=== PATIENT | female | born 1990 | race Two or more races ===

== ENCOUNTER 2016-06-20 19:29 | Emergency (ER) | payer OTHER ==
[2016-06-20 19:40] VITALS: O2SAT 96
[2016-06-20 19:59] LABS: % IMMATURE GRANULYOCYTES 0.2 % (0.0-1.1); ABSOLUTE IMMATURE GRANULOCYTES 0.01 10^3/uL (0.00-0.10); ADD DIFF? NO; ADD MORPH? NO; ADD SCAN? NO; ATYPICAL LYMPHOCYTE FLAG 10 (0-99); FRAGMENT RBC FLAG 0 (0-99); HEMATOCRIT 44.6 % (38.0-47.0); HEMOGLOBIN 15.8 g/dL (12.6-16.3); LEFT SHIFT FLG 0 (0-99); LIPEMIA HEMOLYSIS FLAG 90 (0-99); MEAN CELL HEMOGLOBIN 30.9 pg (27.9-34.1); MEAN CELL HEMOGLOBIN CONCENTR. 35.4 g/dL (32.4-36.7); MEAN CELL VOLUME 87.3 fL (81.5-99.8); MEAN PLATELET VOLUME 10.4 fL (8.7-11.7); PLATELET CLUMPS FLAG 0 (0-99); PLATELET COUNT 277 10^3/uL (150-400); RED BLOOD CELL COUNT 5.11 10^6/uL (4.18-5.33); RED CELL DISTRIBUTION WIDTH 13.2 % (11.5-15.2)
[2016-06-20 20:03] LABS: COLOR AMBER; LEUKOCYTE ESTERASE,URINE NEGATIVE (NEGATIVE); NITRITE,URINE NEGATIVE (NEGATIVE)
[2016-06-20 20:12] LABS: ANION GAP 11 mEq/L (8-16); CALCIUM 9.4 mg/dL (8.5-10.4); CARBON DIOXIDE 27 mEq/l (22-31); CHLORIDE 103 mEq/L (97-110); CREATININE 0.7 mg/dL (0.6-1.0); GLOMERULAR FILTRATION RATE > 60; GLUCOSE 92 mg/dL (70-100); POTASSIUM 3.9 mEq/L (3.5-5.2); SODIUM 141 mEq/L (134-144)
--- NOTE | 2016-06-20 21:31 | EDPHY ---
H & P Stated Complaint: BILT LOW ABD PAIN, RECENT UTI W/TREATMENT X 3 ABX Time Seen by Provider: 06/20/16 19:35 HPI/ROS: CHIEF COMPLAINT: abdominal pain HISTORY OF PRESENT ILLNESS: 25-year-old female presents emergency department complaining of abdominal pain times 10 days. She was seen at urgent care, diagnosed with a urinary tract infection and placed on Macrobid, the patient's symptoms became worse in she developed back pain, she called her primary care doctor and her antibiotic was changed to cefdinir 300 mg twice daily. Her symptoms continue to worsen so her PCP recommended she see design engineering intern. 2 days later she was seen by the laborer airport maintenance and had a pelvic exam, they were concern for pelvic inflammatory disease, she received a shot of ceftriaxone and was placed on metronidazole. She was seen 2 days later for repeat pelvic exam with symptoms that are improving. Patient reports her abdominal discomfort has improved though she woke up with nausea yesterday that has continued today. Patient started taking metronidazole 3 days ago. Patient reports she has had bilateral flank pain for the entire 10 days, this is improving as well. No vomiting, no diarrhea. Patient is sexually active with the same partner for the last 8 months, she denies vaginal discharge, no history of STDs. REVIEW OF SYSTEMS: A comprehensive 10 point review of systems is otherwise negative aside from elements mentioned in the history of present illness. Source: Patient Exam Limitations: No limitations - Personal History Current Tetanus/Diphtheria Vaccine: Yes Current Tetanus Diphtheria and Acellular Pertussis (TDAP): Yes - Medical/Surgical History Hx Asthma: No Hx Chronic Respiratory Disease: No Hx Diabetes: No Hx Cardiac Disease: No Hx Renal Disease: No Hx Cirrhosis: No Hx Alcoholism: No Hx HIV/AIDS: No Hx Splenectomy or Spleen Trauma: No Other PMH: Lyme dx, UTI'S. Shingles. spine pain. vertigo - Social History Smoking Status: Never smoked - Physical Exam Exam: Physical Exam Gen: Alert and Oriented, NAD HEENT: PERRL, moist mucous membranes NECK: no meningismus CV: regular rate and regular rhythm PULM: CTAB, no wheezes ABDOMEN: soft, mild bilateral lower abdominal tenderness to palpation, no peritoneal signs, no rebound tenderness, BS present BACK: Mild bilateral CVA tenderness NEURO: Neurologically grossly intact EXTREMITIES: normal appearing SKIN: no rash or break in skin on exposed skin PSYCH: answers questions appropriately. Constitutional: Initial Vital Signs Temperature (C) 36.6 C 06/20/16 19:30 Heart Rate 69 06/20/16 19:30 Respiratory Rate 18 06/20/16 19:30 Blood Pressure 111/73 06/20/16 19:30 O2 Sat (%) 96 06/20/16 19:30 O2 Delivery Mode Room Air Allergies/Adverse Reactions: No Known Allergies Allergy (Verified 02/28/13 10:18) Home Medications: Medication Instructions Recorded Hydrocortisone mg PO 06/20/16 Nature Thyroid 06/20/16 Ondansetron Odt [Zofran Odt] 4 mg PO Q6-8PRN PRN #8 tab 06/20/16 metroNIDAZOLE [Flagyl 500 mg (*)] 06/20/16 Medical Decision Making - Diagnostics Imaging: Pelvic ultrasound-right lower quadrant ultrasound Impression: 1. Retroflexed uterus with normal endometrium. 2. Normal appearing ovaries without evidence of tubo-ovarian abscess. 3. Small amount of free fluid in the cul-de-sac. 4. Dilated appendix was not visualized in the right lower quadrant. These findings were discussed by telephone with Anthony Bolden NP at 2139 hrs. Dictated By: Liam Sullivan MD ED Course/Re-evaluation: IV established, CBC, chemistry panel, urinalysis obtained. Right lower quadrant and pelvic ultrasound has been ordered. 830pm-patient with normal CBC, normal chemistry panel, normal urinalysis, she is afebrile, not tachycardic. Ultrasound is pending. 2200-pelvic ultrasound shows Impression: 1. Retroflexed uterus with normal endometrium. 2. Normal appearing ovaries without evidence of tubo-ovarian abscess. 3. Small amount of free fluid in the cul-de-sac. 4. Dilated appendix was not visualized in the right lower quadrant. Repeat abdominal examination shows no peritoneal signs, patient continues with normal vital signs. I believe her nausea is a side effect from the metronidazole in her PID is improving from her antibiotics. I have discharged her home with instructions to follow up OBGYN. She is given return precautions for fevers, worsening abdominal pain, any other questions or concerns. Patient is comfortable with this plan. Differential Diagnosis: Diagnosis considered but not limited to medication reaction, pelvic inflammatory disease, pyelonephritis, appendicitis - Data Points Laboratory Results: Laboratory Results 06/20/16 19:40 06/20/16 19:40 06/20/16 19:40 WBC 6.20 10^3/uL (3.80-9.50) RBC 5.11 10^6/uL (4.18-5.33) Hgb 15.8 g/dL (12.6-16.3) Hct 44.6 % (38.0-47.0) MCV 87.3 fL (81.5-99.8) MCH 30.9 pg (27.9-34.1) MCHC 35.4 g/dL (32.4-36.7) RDW 13.2 % (11.5-15.2) Plt Count 277 10^3/uL (150-400) MPV 10.4 fL (8.7-11.7) Neut % (Auto) 50.1 % (39.3-74.2) Lymph % (Auto) 39.0 % (15.0-45.0) [place] % (Auto) 7.4 % (4.5-13.0) Eos % (Auto) 2.3 % (0.6-7.6) Baso % (Auto) 1.0 % (0.3-1.7) Nucleat RBC Rel Count 0.0 % (0.0-0.2) Absolute Neuts (auto) 3.11 10^3/uL (1.70-6.50) Absolute Lymphs (auto) 2.42 10^3/uL (1.00-3.00) Absolute Monos (auto) 0.46 10^3/uL (0.30-0.80) Absolute Eos (auto) 0.14 10^3/uL (0.03-0.40) Absolute Basos (auto) 0.06 10^3/uL (0.02-0.10) Absolute Nucleated RBC 0.00 10^3/uL (0-0.01) Immature Gran % 0.2 % (0.0-1.1) Immature Gran # 0.01 10^3/uL (0.00-0.10) Sodium 141 mEq/L (134-144) Potassium 3.9 mEq/L (3.5-5.2) Chloride 103 mEq/L (97-110) Carbon Dioxide 27 mEq/l (22-31) Anion Gap 11 mEq/L (8-16) BUN 14 mg/dL (7-23) Creatinine 0.7 mg/dL (0.6-1.0) Estimated GFR > 60 Glucose 92 mg/dL (70-100) Calcium 9.4 mg/dL (8.5-10.4) Urine Color ARSENIO Urine Appearance MODERATELY TURBID Urine pH 6.0 (5.0-7.5) Ur Specific [place] 1.021 (1.002-1.030) Urine Protein NEGATIVE (NEGATIVE) Urine Ketones 1+ H (NEGATIVE) Urine Blood NEGATIVE (NEGATIVE) Urine Nitrate NEGATIVE (NEGATIVE) Urine Bilirubin NEGATIVE (NEGATIVE) Urine Urobilinogen NEGATIVE EU (0.2-1.0) Ur Leukocyte Esterase NEGATIVE (NEGATIVE) Urine Glucose NEGATIVE (NEGATIVE) Medications Given: Discontinued Medications Ondansetron HCl (Zofran Odt 4 Mg Prepack#2) 1 btl TAKEPARUL NORBERTVERAW ONE Stop: 06/20/16 22:54 Last Admin: 06/20/16 22:57 Dose: 1 btl Departure - Departure Disposition: Home, Routine, Self-Care Clinical Impression: Medication reaction, Nausea Condition: Good Instructions: Metronidazole (By mouth) Additional Instructions: Take 4 mg of Zofran every 8 hours as needed for nausea, follow up with your PCP this week for re-evaluation, return to the emergency department for worsening symptoms, fevers, worsening pain. Continue taking your antibiotics. Referrals: ROGER CHOE [Primary Care Provider] - As per Instructions Prescriptions: Ondansetron Odt [Zofran Odt] 4 mg PO Q6-8PRN PRN #8 tab PRN Reason: Nausea/Vomiting, Can'T Take Po
--- NOTE | 2016-06-20 21:48 | US ---
Pelvic Ultrasound (Transabdominal and Endovaginal) with color flow and spectral Doppler History: Pelvic pain. Comparison: December 27, 2013 Findings: The pelvis was first examined through a nondistended bladder from TRANSABDOMINAL approach. UTERUS: Not well delineated ADNEXA: No adnexal masses. Ovaries not visualized from transabdominal approach. The pelvis was then evaluated from ENDOVAGINAL approach after the bladder was emptied to better evalu ate the uterus and adnexa. UTERUS: Orientation: Retroflexed. Measures 6.3 x 3.4 x 4.1 cm in longitudinal, AP, and transverse dimensions. Masses: None. Endometrium: Normal measuring 7 mm in thickness. ADNEXA: Normal. Small follicles are once again noted bilaterally. Right ovary size: 2.8 x 1.7 x 3.6 cm Left ovary size: 1.9 x 3.1 x 3.7 cm Color flow and spectral Doppler: Normal color flow imaging with normal Doppler waveform bilaterally. Free fluid: There is a mild amount of free fluid in the cul-de-sac.. Limited Abdomen Right Lower Quadrant Ultrasound: Limited abdominal ultrasound right lower quadrant de monstrates a normal-appearing cecum. A dilated appendix is not visualized. There is no evidence of fr ee fluid or lymphadenopathy in the right lower quadrant. Impression: 1. Retroflexed uterus with normal endometrium. 2. Normal appearing ovaries without evidence of tubo-ovarian abscess. 3. Small amount of free fluid in the cul-de-sac. 4. Dilated appendix was not visualized in the right lower quadrant. These findings were discussed by telephone with Anthony Bolden NP at 2139 hrs.
[2016-06-20 22:20] VITALS: BP 94/63; PULSE 54; RESP 16; TEMP 98.4
[2016-06-20] MEDS ORDERED: ONDANSETRON 4MG PREPACK#2 BTL TAKEHOME ONE ×2 (22:53→22:54)
== END 2016-06-20 22:58 | disposition home or self-care (01) ==
DX: R11.0 Nausea (principal); T37.8X5A Adverse effect of other specified systemic anti-infectives and antiparasitics, initial encounter

== ENCOUNTER → 2017-07-20 | Outpatient (CLI) | payer OTHER | LOC: BMCIMAGING 08:06 | PROVIDERS: ATTEND Urology | DX: R10.9 Unspecified abdominal pain (principal) ==